=== PATIENT | female | born 1955 | race Caucasian/White ===

== ENCOUNTER → 2019-08-19 | Outpatient (REF) | payer OTHER ==
[2019-08-21 12:07] LABS: RUBEOLA IgG ANTIBODY 15.2 AU/mL (Immune >16.4)
== END ==
LOC: M LAB REF 16:52
PROVIDERS: ATTEND Internal Medicine
DX: Z11.9 Encounter for screening for infectious and parasitic diseases, unspecified (principal)

== ENCOUNTER → 2019-09-19 | Outpatient (CLI) | payer OTHER ==
[2019-09-19 17:23] LABS: BASO % 0.5 % (0.0-1.0); EOS # 0.1 10^3/uL (0.0-0.5); EOS % 1.1 % (0.0-3.0); HEMATOCRIT 48.1 % (36.0-47.0); HEMOGLOBIN 15.9 g/dl (12.0-15.5); LYMPH # 1.8 10^3/uL (1.5-5.0); MEAN CORPUSCULAR HEMOGLOBIN 29.6 pg (27.0-33.0); MEAN CORPUSCULAR HGB CONC 33.1 g/dl (32.0-36.5); MEAN CORPUSCULAR VOLUME 89.6 fl (80.0-96.0); MONO # 0.5 10^3/uL (0.0-0.8); MONO % 7.3 % (0.0-5.0); NEUTROPHILS # 4.2 10^3/uL (1.5-8.5); NEUTROPHILS % 63.9 % (36.0-66.0); PLATELET COUNT, AUTOMATED 238 10^3/uL (150-450); RED BLOOD COUNT 5.37 10^6/uL (4.00-5.40); WHITE BLOOD COUNT 6.5 10^3/uL (4.0-10.0)
[2019-09-19 17:30] LABS: ALBUMIN 4.1 GM/DL (3.2-5.2); ALT/SGPT 29 U/L (12-78); BILIRUBIN,TOTAL 0.6 MG/DL (0.2-1.0); BLOOD UREA NITROGEN 9 MG/DL (7-18); CALCIUM LEVEL 9.6 MG/DL (8.8-10.2); CARBON DIOXIDE LEVEL 26 MEQ/L (21-32); CHLORIDE LEVEL 101 MEQ/L (98-107); CREATININE FOR GFR 0.84 MG/DL (0.55-1.30); GLOMERULAR FILTRATION RATE > 60.0 (>45); GLUCOSE, FASTING 121 MG/DL (70-100); POTASSIUM SERUM 4.4 MEQ/L (3.5-5.1); SODIUM LEVEL 136 MEQ/L (136-145); TOTAL PROTEIN 7.7 GM/DL (6.4-8.2)
== END ==
LOC: M WUC 13:16
PROVIDERS: ATTEND Physician Assistant
DX: R10.9 Unspecified abdominal pain (principal)

== ENCOUNTER 2019-09-22 09:38 | Emergency (ER) | payer OTHER ==
[~2019-09-22] VITALS: Ht 175.3 cm; Wt 107.9 kg
[2019-09-22] MEDS ORDERED: AVAP150T31 PO (09:46)
[2019-09-22] MEDS ORDERED: XANA0.5T (09:46)
[2019-09-22] MEDS ORDERED: [UNRECOGNIZED DRUG - CODE] (09:46)
[2019-09-22] MEDS ORDERED: CYTO25TA6 (09:46)
[2019-09-22] MEDS ORDERED: ATEN25TA (09:46)
[2019-09-22] MEDS ORDERED: NS 1,000 ML IV ONE (10:15)
[2019-09-22 10:45] LABS: BASO % 0.4 % (0.0-1.0); EOS # 0.1 10^3/uL (0.0-0.5); EOS % 0.8 % (0.0-3.0); HEMATOCRIT 49.3 % (36.0-47.0); HEMOGLOBIN 16.2 g/dl (12.0-15.5); LYMPH # 1.8 10^3/uL (1.5-5.0); LYMPH % 19.5 % (24.0-44.0); MEAN CORPUSCULAR HEMOGLOBIN 29.5 pg (27.0-33.0); MEAN CORPUSCULAR HGB CONC 32.9 g/dl (32.0-36.5); MEAN CORPUSCULAR VOLUME 89.6 fl (80.0-96.0); MONO # 0.5 10^3/uL (0.0-0.8); MONO % 5.4 % (0.0-5.0); NEUTROPHILS # 6.6 10^3/uL (1.5-8.5); NEUTROPHILS % 73.6 % (36.0-66.0); PLATELET COUNT, AUTOMATED 236 10^3/uL (150-450)
[2019-09-22 10:57] LABS: INR 1.01; PARTIAL THROMBOPLASTIN TIME 29.7 SECONDS (25.0-38.4)
[2019-09-22 11:15] LABS: ALBUMIN 4.1 GM/DL (3.2-5.2); BILIRUBIN,DIRECT 0.2 MG/DL (0.0-0.2); BILIRUBIN,TOTAL 0.6 MG/DL (0.2-1.0)
--- NOTE | 2019-09-22 11:16 | REP ---
CT ABDOMEN AND PELVIS WITHOUT IV CONTRAST: CT abdomen and pelvis performed without oral or IV contrast. Sagittal and reconstruction images are performed. There are no prior studies for comparison. Visualized lung bases demonstrate no infiltrate. The liver is grossly unremarkable as is the gallbladder. No definite biliary dilatation is seen. Spleen is normal in size. Adrenal glands are normal. Pancreas is grossly unremarkable. The kidneys demonstrate no hydronephrosis or nephrolithiasis. Ureters are normal in caliber. Abdominal aorta is normal in caliber with no aneurysm. I seen no adenopathy. There is no free air or free fluid. I seen no bowel wall thickening. There is sigmoid diverticulosis without acute diverticulitis. There appear to be fibroid changes of the uterus with an anterior uterine fibroid projecting into the posterior wall of the bladder 2.7 cm in diameter. There is a nonspecific central fundal calcification of the uterus measuring 6 mm, which may represent a calcified fibroid. Urinary bladder is mildly distended and grossly unremarkable. There are degenerative changes of the spine. IMPRESSION: No acute abnormalities detected. No renal or ureteral calculus and no hydroureteronephrosis. No free air or free fluid. No bowel wall inflammation. Fibroid uterus. Sigmoid diverticulosis without acute diverticulitis. Electronically Signed by Spike Barillas MD 09/22/2019 07:56 P
[2019-09-22 11:43] VITALS: BP 158/94
== END 2019-09-22 11:48 | disposition home or self-care (01) ==
LOC: M ED 09:38
DX: D25.9 Leiomyoma of uterus, unspecified (principal); R10.31 Right lower quadrant pain; I10 Essential (primary) hypertension; E03.9 Hypothyroidism, unspecified; F32.9 Major depressive disorder, single episode, unspecified; K57.30 Diverticulosis of large intestine without perforation or abscess without bleeding; Z79.890 Hormone replacement therapy; Z79.899 Other long term (current) drug therapy; Z91.89 Other specified personal risk factors, not elsewhere classified; Z88.2 Allergy status to sulfonamides

== ENCOUNTER → 2019-09-28 | Outpatient (REF) | payer OTHER ==
[~2019-09-28] MED LIST: ATEN25TA; AVAP150T31 PO; CYTO25TA6; XANA0.5T; [UNRECOGNIZED DRUG - CODE]
== END ==
LOC: M LAB REF 13:05
PROVIDERS: ATTEND Registered Nurse
DX: N39.0 Urinary tract infection, site not specified (principal)

== ENCOUNTER → 2020-11-30 | Outpatient (REF) | payer MEDICARE ==
[2020-11-30 17:56] LABS: BACTERIA, URINE AUTO NEGATIVE (NEGATIVE); RBC, URINE AUTO 1 /HPF (0-3); SQUAMOUS EPITHELIAL CELL UR AU 2 /HPF (0-6); WBC, URINE AUTO 0 /HPF (0-3)
== END ==
LOC: M LAB REF 16:29
PROVIDERS: ATTEND Physician Assistant Medical
DX: R31.9 Hematuria, unspecified (principal)

== ENCOUNTER → 2022-06-26 | Outpatient (REF) | payer MEDICARE | LOC: M LAB REF 12:32 | PROVIDERS: ATTEND Physician Assistant Medical | DX: R10.32 Left lower quadrant pain (principal) ==

== ENCOUNTER → 2022-07-05 | Outpatient (REF) | payer MEDICARE ==
[2022-07-05 14:14] LABS: C REACTIVE PROTEIN QUANTITATIV < 0.30 MG/DL (0.00-0.30); LIPASE 148 U/L (73-393)
== END ==
LOC: M LAB REF 12:46
PROVIDERS: ATTEND Internal Medicine
DX: R10.9 Unspecified abdominal pain (principal); E87.1 Hypo-osmolality and hyponatremia

== ENCOUNTER → 2022-07-10 | Outpatient (CLI) | payer MEDICARE | LOC: M RAD 10:09 | PROVIDERS: ATTEND Internal Medicine | DX: R10.12 Left upper quadrant pain (principal); K57.30 Diverticulosis of large intestine without perforation or abscess without bleeding ==

== ENCOUNTER → 2022-09-04 | Outpatient (REF) | payer MEDICARE | LOC: M LAB REF 19:09 | PROVIDERS: ATTEND Internal Medicine | DX: R10.84 Generalized abdominal pain (principal) ==

== ENCOUNTER → 2022-09-20 | Outpatient (CLI) | payer MEDICARE, BC, OTHER | LOC: M LAB 13:11 | PROVIDERS: ATTEND Internal Medicine Gastroenterology | DX: R19.4 Change in bowel habit (principal) ==

== ENCOUNTER → 2022-09-21 | Outpatient (REF) | payer MEDICARE, BC, OTHER | LOC: M LAB REF 09:30 | PROVIDERS: ATTEND Internal Medicine Gastroenterology | DX: R19.4 Change in bowel habit (principal) ==

== ENCOUNTER → 2022-10-14 | Outpatient (CLI) | payer MEDICARE ==
[~2022-10-14] MED LIST changes: +ALBU8.5H INH; -CYTO25TA6; +CYTO25TA6 PO; +PROGESTERONE CREAM TOP
== END ==
LOC: M LABSMTC 11:44
PROVIDERS: ATTEND Anesthesiology
DX: Z01.812 Encounter for preprocedural laboratory examination (principal); Z20.822 Contact with and (suspected) exposure to COVID-19

== ENCOUNTER 2022-10-17 07:02 | Day surgery (SDC) | payer MEDICARE ==
[~2022-10-17] VITALS: Ht 175.3 cm; Wt 101.2 kg
[~2022-10-17 07:02] MED LIST changes: +GLYCOPYRROLATE INJ 0.2 MG/ML 2 ML VIAL As Ordered ONE; +LIDOCAINE 2% 100MG/5ML SDV (FOR ANES.) As Ordered ONE; +NS 1,000 ML IV ONE; +propofoL 200 MG/20 ML VIAL As Ordered ONE
[2022-10-17 08:22] VITALS: BP 130/82
== END 2022-10-17 08:50 | disposition home or self-care (01) ==
LOC: M OPP 07:02
PROVIDERS: ATTEND Internal Medicine Gastroenterology
DX: R10.32 Left lower quadrant pain (principal); K57.30 Diverticulosis of large intestine without perforation or abscess without bleeding; K64.8 Other hemorrhoids; I10 Essential (primary) hypertension; F41.9 Anxiety disorder, unspecified; F32.A Depression, unspecified; F43.10 Post-traumatic stress disorder, unspecified; J45.909 Unspecified asthma, uncomplicated; Z88.1 Allergy status to other antibiotic agents; Z88.2 Allergy status to sulfonamides; Z88.3 Allergy status to other anti-infective agents; Z91.041 Radiographic dye allergy status; Z79.899 Other long term (current) drug therapy

== ENCOUNTER → 2023-03-10 | Outpatient (REF) | payer MEDICARE, BC, OTHER ==
[~2023-03-10] MED LIST changes: -GLYCOPYRROLATE INJ 0.2 MG/ML 2 ML VIAL As Ordered ONE; -LIDOCAINE 2% 100MG/5ML SDV (FOR ANES.) As Ordered ONE; -NS 1,000 ML IV ONE; -propofoL 200 MG/20 ML VIAL As Ordered ONE
== END ==
LOC: M LAB REF 17:37
PROVIDERS: ATTEND Internal Medicine
DX: E03.9 Hypothyroidism, unspecified (principal)

== ENCOUNTER → 2023-07-18 | Outpatient (REF) | payer MEDICARE, OTHER | LOC: M LAB REF 16:08 | PROVIDERS: ATTEND Internal Medicine | DX: E03.9 Hypothyroidism, unspecified (principal) ==

== ENCOUNTER → 2023-08-25 | Outpatient (REF) | payer MEDICARE, OTHER | LOC: M LAB REF 12:12 | PROVIDERS: ATTEND Internal Medicine | DX: R19.7 Diarrhea, unspecified (principal) ==

== ENCOUNTER → 2023-10-30 | Outpatient (REF) | payer MEDICARE, OTHER | LOC: M LAB REF 16:26 | PROVIDERS: ATTEND Internal Medicine | DX: E03.9 Hypothyroidism, unspecified (principal) ==

== ENCOUNTER → 2024-03-04 | Outpatient (REF) | payer MEDICARE, OTHER | LOC: M LAB REF 16:41 | PROVIDERS: ATTEND Internal Medicine | DX: E03.9 Hypothyroidism, unspecified (principal) ==

== ENCOUNTER → 2024-03-20 | Outpatient (REF) | payer MEDICARE, OTHER | LOC: M LAB REF 13:04 | PROVIDERS: ATTEND Internal Medicine Gastroenterology | DX: Z86.19 Personal history of other infectious and parasitic diseases (principal); R10.32 Left lower quadrant pain ==

== ENCOUNTER → 2024-06-13 | Outpatient (REF) | payer MEDICARE, OTHER | LOC: M LAB REF 10:05 | PROVIDERS: ATTEND Internal Medicine Gastroenterology | DX: R15.2 Fecal urgency (principal); A04.9 Bacterial intestinal infection, unspecified ==

== ENCOUNTER → 2024-09-09 | Outpatient (REF) | payer MEDICARE, OTHER | LOC: M LAB REF 16:42 | PROVIDERS: ATTEND Internal Medicine | DX: E03.9 Hypothyroidism, unspecified (principal) ==